=== PATIENT | female | born 1965 | race African-American/Black ===

== ENCOUNTER 2019-08-13 23:25 | Inpatient (IN) | payer BC ==
[2019-08-13] MEDS ORDERED: Magnesium 2 GM/50 ML BAG (IN WATER) ONE (23:53)
--- NOTE | 2019-08-14 00:03 | CT ---
CT Brain WO Con: 08/13/2019 12:00 AM CLINICAL HISTORY: Fall while on blood thinners. IMAGING TECHNIQUE: Multiple CT images were obtained of the brain without IV contrast. COMPARISON: None. FINDINGS: Brain: No acute infarct or hemorrhage is evident. No midline shift. Ventricles: Normal. No hydrocephalus.. Skull: Intact.. Visualized Paranasal sinuses: Clear.. Mastoid air cells:Clear. Extracranial soft tissues:Normal. IMPRESSION: No acute intracranial abnormality.
[2019-08-14 00:31] LABS: #Basophils 0.1 thou/uL (0.0-0.2); #Eosinphils 0.8 thou/uL (0.0-0.7); #Lymphocytes 2.1 thou/uL (1.20-3.40); #Monocytes 0.9 thou/uL (0.11-0.59); #Neutrophils 13.5 thou/uL (1.40-6.50); %Basophils 0.4 % (0.0-1.0); %Eosinophils 4.8 % (0.0-10.0); %Monocytes 5.2 % (0.0-10.0); %Neutrophils 77.6 % (42.0-75.0); Hemoglobin 7.5 g/dL (12.0-16.0); Mean Corpuscular HGB CONC 33.9 g/dL (32.0-36.0); Mean Corpuscular Hemoglobin 33.8 pg (27.0-31.0); Mean Corpuscular Volume 99.7 fL (78.0-98.0); Mean Platelet Volume 6.3 fL (7.4-10.4); Platelet Count 381 thou/uL (130-400); RBC Distribution Width 15.1 % (11.5-14.5); Red Blood Cell (RBC) Count 2.22 mill/uL (4.20-5.40); White Blood Cell (WBC) Count 17.4 thou/uL (4.8-10.8)
[2019-08-14 00:44] LABS: ALT (SGPT) 12 U/L (8-55); AST (SGOT) 32 U/L (5-34); Albumin 1.3 g/dL (3.5-5.0); Alkaline Phosphatase 374 U/L (40-110); Anion Gap 10 mmol/L (10-20); BUN (Urea Nitrogen) Less than 4 mg/dL (9.8-20.1); Bilirubin, Total 0.3 mg/dL (0.2-1.2); Calc. Creatinine Clearance 0 mL/min (70-130); Carbon Dioxide 27 mmol/L (22-29); Chloride 101 mmol/L (98-107); Estimated GFR-MDRD Greater than 90; Globulin 1.8 g/dL (2.4-3.5); Glucose 125 mg/dL (70-105); Protein, Total 3.1 g/dL (6.0-8.3); Sodium 136 mmol/L (136-145)
[2019-08-14 00:50] LABS: Calcium 5.9 mg/dL (7.8-10.44); Potassium 2.1 mmol/L (3.5-5.1)
[2019-08-14] MEDS ORDERED: Cefepime 2 GM VIAL ONE (01:34)
[2019-08-14] MEDS ORDERED: Calcium Gluc 4.6 MEQ/10 ML (100 MG/ML) ONE ×2 (01:34→01:38)
[2019-08-14 02:01] LABS: INR-International Normal Ratio 2.7; Prothrombin Time 28.1 SEC (12.0-14.7)
[2019-08-14] MEDS ORDERED: Vancomycin HCl 1.25 GM in Sodium Chloride 0.9% 250 ML 250 ML IVPB SCH (02:15)
[2019-08-14] MEDS ORDERED: Potassium Chloride 40 MEQ in Sodium Chloride 0.9% 500 ML IVPB SCH (02:30)
[2019-08-14] MEDS ORDERED: Ondansetron PF 4 MG/2 ML Vial IVP PRN (06:25)
[2019-08-14] MEDS ORDERED: Ondansetron ODT 4 MG TAB SL PRN (06:25)
[2019-08-14] MEDS ORDERED: Loperamide HCl 2 MG CAP PO PRN (06:25)
[2019-08-14] MEDS ORDERED: Acetaminophen 500 MG TAB PO PRN (06:25)
[2019-08-14 06:26] LABS: Lactic Acid 7.1 mmol/L (0.5-2.2)
[2019-08-14] MEDS ORDERED: Potassium Chloride 20 MEQ TAB PO SCH (06:30)
--- NOTE | 2019-08-14 08:30 | HP ---
PRIMARY CARE PROVIDER: Ervin Kwok MD CHIEF COMPLAINT: Falling on the floor. HISTORY OF PRESENT ILLNESS: This is a 53-year-old female, who presented to [facility] Emergency Department after apparently sliding off her couch onto the floor. The patient was noted with unsteady gait and confusion after her fall. The patient's became concerned and notified EMS personnel. The patient states that she had fallen asleep when she slid off the couch. However, the patient's reported that the patient's eyes rolled back in her head and she stopped responding. She apparently stopped breathing for short time, however, after EMS personnel arrived, the patient appeared with somewhat labored breathing and hypotensive with systolic blood pressure in the 80s to 90s. The patient admits to feeling fatigued and noticed swelling of her lower extremities over the last several days. The patient denied any recent change to her chronic medication regimen, but does state that she has had difficulty with recurrent diarrhea with multiple loose stools each day. The patient denied any blood in her stool, travel history, or family members with similar symptoms. The patient states she was recently evaluated at [facility] and admitted undergoing endoscopy with biopsies taken, however, is unclear of the results or the findings. The patient also admits to increased cough over the last 3 to 4 days, but no documented fever. The patient states she continues to smoke up to half a pack of cigarettes daily. The patient admits to overall decreased appetite due to the persistent diarrhea. In the emergency room, the patient underwent general evaluation including CT of the brain and chest imaging with chest x-ray showing evidence of questionable bleb on the right lower lobe as well as left lower lobe infiltrate. The patient received multiple medications to include cefepime, vancomycin, potassium chloride, lactated Ringer's x2 L in addition to calcium gluconate and magnesium sulfate. The patient was noted with persistent hypotension, receiving boluses of IV fluids with some improvement in overall systolic blood pressures. The patient was also given 1 unit of packed red blood cells after hemoglobin was noted at 7.5. The patient recommended for admission to the Hospitalist Service. PAST MEDICAL HISTORY: 1. Irritable bowel syndrome. 2. Chronic obstructive pulmonary disease. 3. Tobacco abuse. 4. Chronic Pancreatitis/Pseudocyst 5. Splenic vein thrombosis 6. Chronic anticoagulation with Coumadin 7. IBS/Chronic diarrhea and malabsorption PAST SURGICAL HISTORY: Status post hysterectomy, colonoscopy/EGD CURRENT MEDICATIONS: Complete list will be provided by the family as the patient is unclear of her entire list of medications. ALLERGIES: ERYTHROMYCIN. FAMILY HISTORY: Positive for hypertension. SOCIAL HISTORY: The patient is . Resides in the [facility]. Smokes up to half a pack of cigarettes daily. Occasional alcohol use. No illicit drug use. REVIEW OF SYSTEMS: CONSTITUTIONAL: Negative for weight loss or gain, ability to conduct usual activities. SKIN: Negative for rash, itching. EYES: Negative for double vision, pain. ENT/MOUTH: Negative for nose bleeding, neck stiffness, pain, tenderness. CARDIOVASCULAR: Negative for palpitations, dyspnea on exertion, orthopnea. RESPIRATORY: Negative for shortness of breath, wheezing, cough, hemoptysis, fever or night sweats. GASTROINTESTINAL: Negative for poor appetite, abdominal pain, heartburn, nausea , vomiting, constipation, or diarrhea. GENITOURINARY: Negative for urgency, frequency, dysuria, nocturia. MUSCULOSKELETAL: Negative for pain, swelling. NEUROLOGIC/PSYCHIATRIC: Negative for anxiety, depression. ALLERGY/IMMUNOLOGIC: Negative for skin rash, bleeding tendency. Otherwise negative except as stated per HPI. PHYSICAL EXAMINATION: VITAL SIGNS: On admission, blood pressure 82/59, pulse 88, respiratory rate 21, temperature 97.9 degrees Fahrenheit, and O2 saturation 98% on room air. GENERAL APPEARANCE: This is a 53-year-old female, lethargic, answers questions, in mild distress. HEENT: Pupils are equal, round, and reactive to light and accommodation. Extraocular muscles are intact. No scleral icterus. No conjunctival injection. Nares are patent. OP is clear. Oral mucosa dry appearing. NECK: Supple. No cervical adenopathy. No thyromegaly. No carotid bruits. No JVD appreciated. Cervical spine with full active and passive range of motion. No meningeal signs noted. CHEST: Diminished breath sounds in the bases with prolonged expiratory phase. CARDIOVASCULAR: S1 and S2 without noted murmur, rub, or gallop. ABDOMEN: Rounded, soft, nontender, and nondistended. Bowel sounds are positive in all 4 quadrants. There is no hepatosplenomegaly. No abdominal bruits. No rebound or guarding appreciated. EXTREMITIES: Warm and dry with fair turgor. Pitting edema to the thighs bilaterally. Bullous formation of multiple areas on bilateral lower extremities. Pulses are palpable distally at the dorsalis pedis, posterior tibial, and popliteal arteries bilaterally. Capillary refill less than 2 seconds. NEUROLOGIC: Cranial nerves II through XII are grossly intact. No focal or lateralizing signs appreciated. PERTINENT LABORATORY AND X-RAY FINDINGS: Sodium 136, potassium 2.1, chloride 101, CO2 of 27, BUN less than 4, creatinine 0.45, glucose 125, lactic acid level 5.4, calcium 5.9, AST 32, ALT of 12, alkaline phosphatase 374 with troponin I 0.012, and albumin 1.3. CBC showed a white blood cell count of 17.4, hemoglobin 7.5, hematocrit 22, MCV 99.7, and platelet count 381 with 78% neutrophils. PT 28.1, INR 2.7. CT of the brain without contrast dated 08/13/2019, showed no acute intracranial process. Portable chest x-ray dated 08/13/2019, by my review shows chronic changes in bilateral lung pederson. Bleb noted in the right middle and lower lobe. Questionable early infiltrate in the left lower lobe. EKG dated 2018, by my interpretation shows sinus mechanism with heart rates in the 80s. Attenuated R-waves noted in the precordial leads. Normal axis. T-wave inversion noted in leads V2 through V4. ASSESSMENT AND PLAN: 1. Severe sepsis with septic shock. Questionable etiology with potential of pulmonary source. We will continue aggressive sepsis protocol. The patient received IV fluid boluses in the emergency room. We will continue cefepime and Levaquin IV, pending blood and urine cultures. Transfer to the Intermediate Care Unit for further monitoring. 2. Hypokalemia. Severe hypokalemia on metabolic screening. Continue potassium chloride supplementation and monitor serial potassium. 3. Lactic acidosis secondarily to severe sepsis with septic shock. We will continue IV fluids and IV antibiotics as outlined in #1. 4. Hypocalcemia. Status post calcium gluconate intravenously. Repeat calcium level in the a.m. 5. Macrocytic anemia. Appears chronic with questionable acute/subacute component. Status post 1 unit of packed red blood cells in the emergency room. Check stool studies in addition to stool guaiac. Consult GI Service for further evaluation. 6. Coagulopathy. The patient apparently on long-term anticoagulation. However, this will need to be confirmed with the current and accurate medication regimen. 7. Prophylaxis. SCDs while in bed. Pepcid 20 mg p.o. b.i.d. PT evaluation for functional assessment. 8. Code status is full. Surrogate medical decision maker is the patient's spouse. Job ID: [id number] MTDD
--- NOTE | 2019-08-14 08:32 | RAD ---
PORTABLE CHEST: Date: 08/13/19 HISTORY: Syncope. COMPARISON: 12/22/16. FINDINGS: There is a cavitary lesion with cavitation measuring up to 4.0 cm in the right lung base. There is a confluent opacity in the left lung base consistent with mass or infiltrate. The upper lungs appear clear. The right hilum is prominent, but is stable. Heart and mediastinum unre markable. IMPRESSION: 1. Cavitary lesion in the right lung base. 2. Confluent opacity in the left base consistent with mass or focal consolidation. Chest CT may be o f benefit to further characterize these findings. POS: OFF
[2019-08-14] MEDS: Famotidine 20 MG TAB PO SCH ×2 (09:00→20:06)
[2019-08-14] MEDS ORDERED: Cefepime 2 GM VIAL IVPB SCH (09:00)
[2019-08-14] MEDS: Sodium Chloride 0.9% 1,000 ML IV SCH ×4 (09:04→23:12)
[2019-08-14 09:19] LABS: Amphetamine Not Detected (NotDetected); Barbiturates Screen Detected (NotDetected); Benzodiazepine Screen Not Detected (NotDetected); Cocaine Metabolite Screen Not Detected (NotDetected); Medtox Control Line Valid? VALID (VALID); Medtox Reader # READER 4; Methadone Not Detected (NotDetected); Methamphetamine Not Detected (NotDetected); Opiate Screen Not Detected (NotDetected); Oxycodone Screen Not Detected (NotDetected); Phencyclidine (PCP) Not Detected (NotDetected); THC/Cannabinoid Screen Not Detected (NotDetected); Tricyclic Screen Not Detected (NotDetected)
[2019-08-14] MEDS ORDERED: Calcium Chloride 13.6 MEQ in Sodium Chloride 0.9% 100 ML IVPB SCH (09:30)
--- NOTE | 2019-08-14 09:51 | CON ---
DATE OF CONSULTATION: 08/14/2019 REASON FOR CONSULTATION: IMCU management. HISTORY OF PRESENT ILLNESS: The patient is a 53-year-old female, who presented to the emergency room after sliding off her couch. She appears very weak. She has numerous complaints. She has chronic diarrhea. She has pain throughout her body. She has swelling throughout her body. She usually receives hospital care at [facility], but her primary care physician is Dr. Ervin Kwok. It sounds like she was being referred to Gastroenterology for further workup, but has not seen them yet. In the emergency room, she was noted to have a low blood pressure. Her potassium and calcium level were extremely low. I do not see the magnesium level was done. Her lactic acid level is quite high. Also notable her INR is 2.7, but she is currently on Coumadin. She is also profoundly anemic. PAST MEDICAL HISTORY: 1. Irritable bowel syndrome/chronic diarrhea. 2. Chronic obstructive pulmonary disease. 3. Tobacco abuse. 4. Previous pneumonia. PAST SURGICAL HISTORY: She had a hysterectomy. MEDICATIONS: Prior to admission, she is on Coumadin. Other medications list is pending. SOCIAL HISTORY: She smokes about 5 cigarettes per day and smokes about half pack per day most of her adult life. Does not use illicit drugs. Remote use of alcohol in the past. REVIEW OF SYSTEMS: Remarkable for weight loss, swelling, thrush, and poor appetite. PHYSICAL EXAMINATION: VITAL SIGNS: Pulse 92, blood pressure 107/67, O2 saturation 98%, respiratory rate 22, and temperature is 98.9. She is 5 feet and 5 inches, weighs 110 pounds. GENERAL: Appears in no acute distress. HEENT: Pupils are reactive. Sclerae are anicteric. Oropharynx dry. NECK: No adenopathy, JVD, or bruits. LUNGS: Diminished effort, but generally clear throughout. CARDIOVASCULAR: S1 and S2. Regular. ABDOMEN: Soft and nontender. EXTREMITIES: Lower extremity edema present from the feet up to her hips, probably 1 to 2+. LABORATORY DATA: Sodium 136, potassium 2.1, chloride 101, CO2 of 27, BUN 4, creatinine 0.4, glucose 125, lactate 7.1, calcium 5.9, and albumin is 1.3. Cortisol level 14. INR 2.7. White blood cell count 17.4, hematocrit 22.1, and platelet count 381. Urine drug screen was positive for barbiturates. IMAGING STUDIES: Chest x-ray shows a cavitary type lesion in the right lower lobe. There is also a density in the left lower lobe. ASSESSMENT: 1. The patient is presenting with profound intravascular hypovolemia with severe electrolyte disturbances. This all may be secondary to chronic diarrhea. She is also severely hypoalbuminemic indicating that she has either cirrhosis and/or nephrotic syndrome. 2. Cavitary lesion and nodular lesion on her chest x-ray. 3. Anemia. 4. History of splenic thrombosis. PLAN: 1. The patient is ultimately going to need a CT of her chest. I will wait and see if GI wants imaging of her abdomen, so we will combine these 2 procedures. 2. Agree with IV antibiotics. 3. Replace electrolytes and check levels. 4. We will need to check magnesium. 5. Replace calcium. 6. Agree with empiric antibiotics. 7. Consider transfusion. 8. Workup for possible nephrotic syndrome. Job ID: [id number]
[2019-08-14 10:31] LABS: Bilirubin Negative (Negative); Blood, Urine Negative (Negative); Glucose, Urine (Dipstick) Negative (Negative); Leukocyte Negative (Negative); Nitrite Negative (Negative); Protein, Urine (Dipstick) Negative (Neg-Trace); Urobilinogen 0.2 mg/dL (Less than 2)
[2019-08-14 10:34] LABS: Bacteria/HPF 1+ HPF (None Seen); RBC/HPF 0-3 HPF (0-3); Squamous Epithelial 0-3 HPF (0-3); WBC/HPF 0-3 HPF (0-3)
[2019-08-14 10:35] LABS: Clarity Clear (Clear)
[2019-08-14 12:35] LABS: Anion Gap 14 mmol/L (10-20); BUN (Urea Nitrogen) Less than 4 mg/dL (9.8-20.1); Calc. Creatinine Clearance 99 mL/min (70-130); Calcium 6.7 mg/dL (7.8-10.44); Carbon Dioxide 25 mmol/L (22-29); Chloride 103 mmol/L (98-107); Estimated GFR-MDRD Greater than 90; Glucose 129 mg/dL (70-105); Magnesium 1.4 mg/dL (1.6-2.6); Potassium 3.3 mmol/L (3.5-5.1); Sodium 139 mmol/L (136-145)
--- NOTE | 2019-08-14 13:22 | CON ---
DATE OF CONSULTATION: 08/14/2019 REQUESTING PHYSICIAN: Dr. Simmons. REASON FOR CONSULTATION: Chronic diarrhea and anemia. HISTORY OF PRESENT ILLNESS: Nicole Rolle is a 53-year-old woman with a history of COPD and tobacco abuse. She has a remote history of splenic thrombosis, for which she has been on Coumadin for at least the past 6 months. In the past, she saw my partner, Dr. Huber Anderson and had negative EGD and colonoscopy back in 2014. More recently, over the past greater than 6 months, she has had a constellation of symptoms including progressive weakness, swelling in the lower extremities, weight loss of 50 to 60 pounds, loss of appetite, and chronic diarrhea with at least 4 to 5 nonbloody bowel movements per day. There is no abdominal pain associated with this. She was hospitalized recently at [facility] earlier this month for over a week and says she had multiple studies done including EGD and colonoscopy with biopsies. She states that she was told she had an ulcer in her small intestine and that biopsies were still pending. She was going to follow up with her GI doctor, Dr. Adair next week. However, she was admitted here yesterday after having a fall at home essentially she slid off the couch, she was found to be hypotensive. She has elevated lactic acid 7.1 and other lab abnormalities including severe hypoalbuminemia, leukocytosis with WBC 17.4. A head CT was negative, but a chest x-ray showed a left lung base opacity and right lower lung cavitary lesion measuring 4 cm. She has been seen by Pulmonology and a CT of the chest has been ordered. Currently, the patient is essentially asymptomatic. Again, she denies any melena or hematochezia. FOBT was negative. The patient expresses a desire to minimize any further workup is possible here, and continue with workup already in process at [facility]. REVIEW OF SYSTEMS: Full review of systems including constitutional, head, eyes, ears, nose, throat, GI, , cardiovascular, respiratory, musculoskeletal, neurologic systems is negative except as noted in the HPI. PAST MEDICAL HISTORY: COPD, tobacco abuse, IBS, hysterectomy, and splenic thrombosis on Coumadin. ALLERGIES: ERYTHROMYCIN BASE. OUTPATIENT MEDICATIONS: 1. Spironolactone 25 mg daily. 2. Hydrocodone p.r.n. 3. Tizanidine 2 mg at bedtime. 4. Fluconazole 200 mg p.o. daily. 5. Potassium chloride 20 mEq daily. 6. Nystatin oral suspension. SOCIAL HISTORY: The patient does smoke. No alcohol or drug abuse. FAMILY HISTORY: Negative for gastrointestinal illness per the patient's recollection. PHYSICAL EXAMINATION: VITAL SIGNS: Temperature 98.6, pulse 106, blood pressure 107/71, and 100% oxygen saturation on room air. GENERAL: A 53-year-old woman, appearing chronically ill, but nontoxic, lying in bed comfortably, in no distress. SKIN: No jaundice. No rashes were palpable. HEENT: Eyes; no scleral icterus. Extraocular movements intact. ENT; mucous membranes moist. No oral lesions. LYMPH: No submandibular or supraclavicular lymphadenopathy. THYROID: Nontender to palpation. HEART: Regular, tachycardia. LUNGS: Bibasilar crackles. No wheezing. No respiratory distress. ABDOMEN: Nondistended. Bowel sounds present. Soft, nontender to palpation. EXTREMITIES: Trace pretibial edema bilaterally. LABORATORY STUDIES: WBC 17.4, hemoglobin 7.5, platelets 381. Sodium 136, potassium 2.1, BUN less than 4, and creatinine 0.43. INR 2.7. Lactic acid 7.1. Troponin negative. Alkaline phosphatase 374, AST 32, ALT 12, albumin 1.3, and total bilirubin 0.3. Urinalysis negative. Urine tox screen is positive for barbiturates. Stool studies show negative FOBT, negative fecal leukocytes, negative Campylobacter antigen. IMAGING STUDIES: Head CT shows no acute abnormalities. Chest x-ray shows left lung base opacity and the right lung base cavitary lesion measuring 4 cm. ASSESSMENT AND PLAN: 1. Chronic diarrhea. 2. Anemia, with no overt evidence of gastrointestinal bleeding. 3. Weight loss. 4. Malnutrition. The patient reports having undergone upper and lower endoscopic workup earlier this month with Dr. Adair at [facility], that she had some ulceration in the small bowel, and the biopsies were obtained. Consider celiac disease versus small bowel Crohn disease. I do not think there is any need to repeat any endoscopic investigation at this point. The patient is hoping to minimize any workup here if possible and follow up with Dr. Adair as planned next week. So, we will not plan on any endoscopy. 5. Lung lesions. Pulmonary has been consulted. From my understanding, chest CT is planned for further investigation of this right-sided cavitary lesion and left-sided density. We will attempt to get records from her recent [facility] hospitalization, particularly with regard to her endoscopic workup. But from a GI perspective, we will likely not plan to repeat that here. Job ID: [id number]
[2019-08-14] MEDS: Cefepime 2 GM in Sodium Chloride 0.9% 100 ML IVPB SCH (13:24)
[2019-08-14] MEDS: Potassium Chloride 20 MEQ TAB PO SCH (16:43)
[2019-08-14] MEDS: Loperamide HCl 2 MG CAP PO PRN (20:06)
[2019-08-14] MEDS: HYDROcodone/Acetaminophen 5/325 mg Tablet PO PRN (20:06)
[2019-08-15] MEDS: Cefepime 2 GM in Sodium Chloride 0.9% 100 ML IVPB SCH ×2 (01:45→15:02)
[2019-08-15] MEDS: Benzonatate 100 MG CAP PO PRN ×2 (02:14→08:24)
[2019-08-15] MEDS: HYDROcodone/Acetaminophen 5/325 mg Tablet PO PRN ×4 (02:15→20:07)
[2019-08-15 06:22] VITALS: BMI 21.7
[2019-08-15 06:47] LABS: INR-International Normal Ratio 2.3; Prothrombin Time 24.7 SEC (12.0-14.7)
[2019-08-15 06:52] LABS: Band 18 % (5-11); Eosinophils 1 % (0-10); Lymphocytes 5 % (21-51); MDiff Complete? YES; Mean Corpuscular HGB CONC 32.9 g/dL (32.0-36.0); Mean Platelet Volume 6.5 fL (7.4-10.4); Monocytes 3 % (0-10); Neutrophil 73 % (42-75); Platelet Count 380 thou/uL (130-400); RBC Distribution Width 15.7 % (11.5-14.5); Red Blood Cell (RBC) Count 3.35 mill/uL (4.20-5.40); White Blood Cell (WBC) Count 19.9 thou/uL (4.8-10.8)
[2019-08-15 06:59] LABS: Phosphorus 1.9 mg/dL (2.3-4.7)
[2019-08-15 07:00] LABS: ALT (SGPT) 14 U/L (8-55); AST (SGOT) 24 U/L (5-34); Albumin 1.6 g/dL (3.5-5.0); Alkaline Phosphatase 515 U/L (40-110); Anion Gap 13 mmol/L (10-20); BUN (Urea Nitrogen) Less than 4 mg/dL (9.8-20.1); Bilirubin, Total 0.5 mg/dL (0.2-1.2); Calc. Creatinine Clearance 128 mL/min (70-130); Calcium 6.7 mg/dL (7.8-10.44); Carbon Dioxide 27 mmol/L (22-29); Chloride 102 mmol/L (98-107); Estimated GFR-MDRD Greater than 90; Globulin 2.6 g/dL (2.4-3.5); Glucose 91 mg/dL (70-105); Magnesium 1.1 mg/dL (1.6-2.6); Potassium 2.7 mmol/L (3.5-5.1); Protein, Total 4.2 g/dL (6.0-8.3); Sodium 139 mmol/L (136-145)
[2019-08-15] MEDS: Potassium Chloride 20 MEQ TAB PO SCH ×2 (07:21→15:07)
[2019-08-15] MEDS: Famotidine 20 MG TAB PO SCH ×2 (07:42→20:06)
[2019-08-15] MEDS: Loperamide HCl 2 MG CAP PO PRN (07:45)
[2019-08-15] MEDS ORDERED: Potassium Chloride 40 MEQ in Sodium Chloride 0.9% 250 ML 250 ML IVPB SCH (08:00)
[2019-08-15] MEDS ORDERED: SODIUM CHLORIDE 0.9% IVPB SCH (08:00)
[2019-08-15] MEDS ORDERED: MAGNESIUM IVPB SCH (08:00)
--- NOTE | 2019-08-15 08:11 | PRG ---
DATE OF SERVICE: 08/15/2019 SUBJECTIVE: The patient has numerous somatic complaints, but overall seems to be doing reasonably well. OBJECTIVE: VITAL SIGNS: Her temperature is 98.4, pulse 94, blood pressure 147/97, O2 saturation 99%. Intake for 24 hours 2740, output 640. HEENT: Unremarkable. NECK: No adenopathy or JVD. CHEST: Clear to auscultation without wheezing, rhonchi. CARDIAC: S1, S2. Regular. ABDOMEN: Soft, nontender to palpation. EXTREMITIES: No clubbing, cyanosis, or edema. LABORATORY DATA: White count is 19.9, hematocrit 33.5, and platelet count 380. INR is 2.3. Sodium 139, potassium 2.7, chloride 102, CO2 of 27, BUN 4, creatinine 0.4, glucose 91, phosphorus 1.9, magnesium level 1.1. ASSESSMENT: 1. Severe electrolyte depletion either from malnutrition or chronic diarrhea. 2. Cavitary lung lesion right lower lobe as long as a more solid lesion in the left lower lobe. PLAN: 1. Replace electrolytes. 2. Continue antibiotics. 3. Move to the medical floor as she no longer requires ICU care. 4. Complete CT of the chest. Job ID: [id number]
[2019-08-15] MEDS: Diabetic Tussin 200 MG/10 ML UDCUP PO PRN ×3 (08:24→20:07)
--- NOTE | 2019-08-15 09:37 | CT ---
CT CHEST WITH IV CONTRAST: INDICATION: Followup cavitary lung lesion. COMPARISON: Comparison is made to chest film of 08/13/2019 which revealed a cavitary lesion in the right lung bas e and focal opacification in the left lung base. FINDINGS: There are moderate-sized bilateral pleural effusions which were not well appreciated on the plain radha m. These produce bibasilar compressive atelectasis. There is a 4.5 cm cavitary mass in the right lower lobe corresponding to the lesion seen on plain radha m. There is an air fluid level within this cavitary lesion. There is a 2nd cavitary mass in the right mid lung medially in a paravertebral location which measure s approximately 2.3 cm total dimension with a small cavitary component measuring approximately 1.0 cm diameter. In the right upper lobe, there are focal areas of ground-glass opacities consistent with focal areas of alveolar infiltrate. Small blebs are seen in the right upper lobe posteriorly along the pleural s urface. Review of the left lung shows small blebs seen in the left upper lobe posteriorly along the fluid tierra face of the effusion . There are also ground-glass opacities in the left upper lobe similar to the ri ght consistent with areas of focal infiltrate. There is a cavitary lesion in the left mid lung in the region of the lingula measuring 3.0 cm total d imension with a small central cavitation measuring approximately 1.2 cm. There is compressive atelec tasis and/or infiltrate in the left lung base posteriorly adjacent to the left pleural fluid. Mediastinum is unremarkable with no adenopathy. Thoracic aorta is opacified and appears unremarkable . The pulmonary arteries are opacified and there is no evidence of proximal pulmonary embolus. Images through the upper abdomen reveal low attenuation of the liver suggesting diffuse fatty infiltr ation. IMPRESSION: 1. Moderate-sized bilateral pleural effusions with bibasilar compressive atelectasis. 2. There are multiple cavitary lesions seen in both lungs as described above. In addition, there ar e focal nodular areas of ground-glass opacity in both upper lobes as described above. Tuberculosis a nd other granulomatous infections should be excluded. POS: [facility]
[2019-08-15] MEDS: Sodium Chloride 0.9% 1,000 ML IV SCH ×2 (11:56→20:05)
--- NOTE | 2019-08-15 17:25 | PRG ---
DATE OF SERVICE: 08/15/2019 SUBJECTIVE: Ms. Rolle is resting in her bed. She has been moved out of the ICU without complaints. She wonders about results of her test. I have talked with her. She states that she was drinking heavily up until about a couple of months ago when she had pancreatitis at [facility]. Since then, she states she has not had anything to drink. She has had electrolytes replaced today. She continues to have severe profound hyponatremia, phosphatemia, calcemia, and magnesemia. I talked with the nurses. No records come from [facility] yet. Apparently, now she is being ruled out for TB. MEDICATIONS: 1. Normal saline 100 an hour. 2. K-Dur 40 b.i.d. 3. Levofloxacin. 4. Famotidine. 5. Cefepime. 6. Pepcid b.i.d. PHYSICAL EXAMINATION: GENERAL: She is resting comfortably on bed. VITAL SIGNS: Temperature 97, pulse 90, blood pressure 161/97. HEENT: She had puffy cheeks. NECK: Supple without nodes. LUNGS: Clear. ABDOMEN: Nontender. LABORATORY DATA: White count 19,900, MCV 100, and platelet count 380. INR is 2.3. Sodium 139, potassium 2.6, BUN is 4, creatinine is 0.47, and calcium 6.7. Lactic acid was 8 yesterday and when checked today. Phosphorus 1.9. Magnesium is 1.1. Bilirubin is 0.5, total protein 4.2, and albumin 1.6. TSH of 4. ASSESSMENT: 1. Diarrhea, etiology is unclear. Fecal cultures negative. Inflammatory markers in stool negative. Red blood cells in stool negative. She has had apparently recent diagnosis of pancreatitis at [facility], has a splenic vein thrombosis, maybe she has some pancreatic insufficiency. She denies drinking alcohol, states she stopped 2 months ago. 2. Multiple electrolyte abnormalities, could be related to a secretory diarrhea, could be related to malabsorption from chronic pancreatitis, could be related to alcohol abuse, but no levels were checked when she came in. 3. Leukocytosis. 4. Possible tuberculosis on x-rays. RECOMMENDATIONS: 1. I would consider getting an HIV test. Await for records from [facility]. We would check electrolytes including magnesium and phosphorus daily and replace with IV and not oral. 2. We would add some potassium to her IV fluids. 3. Consider checking for immunosuppression. Job ID: [id number]
--- NOTE | 2019-08-15 21:51 | PDOC.HOSPP ---
- Subjective Subjective: Still having problems with the diarrhea. Has been losing a fair amount of weight. Denies abdominal pain. - Objective Vital Signs & Weight: Vital Signs (12 hours) Temp Pulse Resp BP Pulse Ox 08/15/19 19:20 97.7 F 77 18 148/93 H 98 08/15/19 18:25 98 16 97 08/15/19 16:31 97.4 F L 70 16 161/97 H 97 08/15/19 15:02 100 20 08/15/19 12:05 98.3 F 85 16 128/83 97 08/15/19 11:10 107 H 20 96 Weight Admit Weight 110 lb Weight 130 lb 8.218 oz Most Recent Monitor Data Heart Rate from ECG 84 NIBP 147/94 NIBP BP-Mean 111 Respiration from ECG 24 SpO2 96 I&O: 08/14/19 08/15/19 08/16/19 06:59 06:59 06:59 Intake Total 2740 0 Output Total 640 80 Balance 2100 -80 Result Diagrams: 08/15/19 06:16 08/15/19 06:16 Hospitalist ROS - Medication Medications: Active Medications Generic Name Dose Route Start Last Admin Trade Name Freq PRN Reason Stop Dose Admin Acetaminophen 1,000 mg 08/14/19 06:25 08/14/19 20:10 Tylenol PO 1,000 mg Q6H PRN Administration Mild Pain (1-3) Hydrocodone Bitart/Acetaminophen 1 tab 08/14/19 06:25 08/15/19 20:07 [place] 5/325 PO 1 tab Q4H PRN Administration Moderate Pain (4-6) Albuterol/Ipratropium 3 ml 08/14/19 06:30 08/15/19 18:25 Duoneb NEB 3 ml [id number] ELIDA Administration Benzonatate 100 mg 08/14/19 06:25 08/15/19 08:24 Tessalon PO 100 mg Q6H PRN Administration Cough Famotidine 20 mg 08/14/19 09:00 08/15/19 20:06 Pepcid PO 20 mg BID ELIDA Administration Guaifenesin 200 mg 08/14/19 06:25 08/15/19 20:07 Robitussin Sf PO 200 mg Q4H PRN Administration Cough Levofloxacin 750 mg/ Device 150 mls @ 100 mls/hr 08/14/19 08:00 08/15/19 07: 40 IVPB 150 mls 0800 ELIDA Administration Sodium Chloride 1,000 mls @ 100 mls/hr 08/14/19 06:25 08/15/19 20:05 Normal Saline 0.9% IV 1,000 mls .Q10H ELIDA Administration Cefepime HCl 2 gm/ Sodium 100 mls @ 200 mls/hr 08/14/19 14:00 08/15/19 15:02 Chloride IVPB 100 mls 0200,1400 ELIDA Administration Loperamide HCl 2 mg 08/14/19 06:25 08/15/19 07:45 Imodium PO 2 mg PRN PRN Administration Diarrhea/Loose Stools Ondansetron HCl 4 mg 08/14/19 06:25 08/14/19 16:43 Zofran IVP 4 mg Q6H PRN Administration Nausea/Vomiting - Exam General Appearance: NAD, awake alert Eye - other findings: Some facial edema. Neck: supple, symmetric, no JVD, no thyromegaly, no lymphadenopathy, no carotid bruit Heart: RRR, no murmur, no gallops, no rubs, normal peripheral pulses Respiratory: CTAB, no wheezes, no rales, no ronchi, normal chest expansion, no tachypnea, normal percussion Gastrointestinal: soft, non-tender, non-distended, normal bowel sounds, no palpable masses, no hepatomegaly, no splenomegaly Extremities: no cyanosis, 2+ LE edema Extremities - other findings: Crenated skin over the LE's. Musculoskeletal: generalized weakness Psychiatric: normal affect Hosp A/P (1) Diarrhea Code(s): R19.7 - DIARRHEA, UNSPECIFIED Status: Acute (2) Malnutrition Code(s): E46 - UNSPECIFIED PROTEIN-CALORIE MALNUTRITION Status: Acute (3) Hypokalemia Code(s): E87.6 - HYPOKALEMIA Status: Acute (4) Hypophosphatemia Code(s): E83.39 - OTHER DISORDERS OF PHOSPHORUS METABOLISM Status: Acute (5) Anasarca Code(s): R60.1 - GENERALIZED EDEMA Status: Acute (6) Cavitary lesion of lung Code(s): J98.4 - OTHER DISORDERS OF LUNG Status: Acute (7) Sepsis Code(s): A41.9 - SEPSIS, UNSPECIFIED ORGANISM Status: Acute (8) Lactic acid acidosis Code(s): E87.2 - ACIDOSIS Status: Acute (9) Macrocytic anemia Code(s): D53.9 - NUTRITIONAL ANEMIA, UNSPECIFIED Status: Acute - Plan Broad array of nutritional deficiencies and electrolyte deficiencies. Chronic diarrhea. Cause is not clear. Had endoscopy [facility] Requesting results/records again. Has leukocytosis, cavitary lung lesions and fever. Concern for TB, encocarditis. Echo, AFB smears. Isolate. Continue the broad-spectrum IV abx. Aggressively monitor, replace lytes. May need to consider IV nutrition if the GI situation is not identified and resolved soon.
[2019-08-16] MEDS: HYDROcodone/Acetaminophen 5/325 mg Tablet PO PRN ×5 (01:16→20:36)
[2019-08-16] MEDS: Cefepime 2 GM in Sodium Chloride 0.9% 100 ML IVPB SCH ×2 (01:16→13:17)
[2019-08-16 07:08] LABS: Anion Gap 10 mmol/L (10-20); BUN (Urea Nitrogen) Less than 4 mg/dL (9.8-20.1); Calc. Creatinine Clearance 150 mL/min (70-130); Calcium 6.2 mg/dL (7.8-10.44); Carbon Dioxide 24 mmol/L (22-29); Chloride 105 mmol/L (98-107); Estimated GFR-MDRD Greater than 90; Glucose 127 mg/dL (70-105); Magnesium 1.4 mg/dL (1.6-2.6); Phosphorus 3.1 mg/dL (2.3-4.7); Potassium 3.2 mmol/L (3.5-5.1); Sodium 136 mmol/L (136-145)
[2019-08-16] MEDS: Pancrelipase DR 12000 1 CAP PO SCH ×3 (07:49→17:43)
[2019-08-16] MEDS: Famotidine 20 MG TAB PO SCH ×2 (07:50→20:48)
[2019-08-16] MEDS ORDERED: Potassium Chloride 40 MEQ in Premix Bag 1 BAG IVPB SCH (08:00)
[2019-08-16] MEDS ORDERED: Potassium Chloride 40 MEQ in Sodium Chloride 0.9% 250 ML 250 ML IVPB SCH (08:30)
[2019-08-16] MEDS: Diabetic Tussin 200 MG/10 ML UDCUP PO PRN ×4 (08:36→20:48)
--- NOTE | 2019-08-16 11:27 | PRG ---
DATE OF SERVICE: 08/16/2019 SUBJECTIVE: The patient's CT scan yesterday showing multiple fluid-filled lung abscesses, primarily in the lower aspects of her lungs. She also had bilateral small effusions. I was able to review records from [facility] done a couple of weeks ago and she did not have a CT scan done and nothing on the x-ray mention cavitary lesions at that time. She did not have a JOHNATHON there, but had a transthoracic echocardiogram. She says she feels a little better today. She coughed up some sputum for AFB, but the results of that are pending. OBJECTIVE: VITAL SIGNS: Her temperature 97.4, pulse 82, respirations 18, O2 saturation 96%, and blood pressure 144/87. HEENT: Unremarkable. NECK: No adenopathy or JVD. LUNGS: Clear anteriorly. CARDIAC: S1 and S2. Regular. ABDOMEN: Soft. EXTREMITIES: No edema. LABORATORY DATA: Sodium 136, potassium 3.2, BUN 4, creatinine 0.4, and glucose 127. ASSESSMENT: Cavitary lung disease-lung abscesses versus septic emboli, less likely tuberculosis. PLAN: 1. Agree with checking HIV test. 2. Await sputum. 3. May end up needing a JOHNATHON. 4. Continue antibiotics. Job ID: [id number]
[2019-08-16] MEDS: Sodium Chloride 0.9% 1,000 ML IV SCH ×2 (11:38→20:29)
[2019-08-16 12:29] LABS: HIV (1/2) Antibody/Antigen Non-Reactive (NonReactive); HIV 1/2 INDEX 0.06 S/CO (<1.00)
[2019-08-16] MEDS ORDERED: Magnesium Sulfate 3 GM in Sodium Chloride 0.9% 100 ML IVPB SCH (15:15)
[2019-08-16] MEDS: Benzonatate 100 MG CAP PO PRN (20:48)
--- NOTE | 2019-08-16 22:54 | PDOC.HOSPP ---
- Subjective Subjective: Doing ok. Diarrhea is slightly better. Spoke with her . He was concerned about an area on her right post chest area. Had a injury there with a fall and now has some swelling. - Objective Vital Signs & Weight: Vital Signs (12 hours) Temp Pulse Resp BP Pulse Ox 08/16/19 21:54 60 16 95 08/16/19 20:00 97.8 F 91 18 134/87 97 08/16/19 18:14 61 18 98 08/16/19 16:51 97.5 F L 74 18 149/91 H 95 08/16/19 15:24 68 18 97 08/16/19 11:34 97.6 F 74 28 H 137/83 96 Weight Admit Weight 110 lb Weight 130 lb 3.2 oz Most Recent Monitor Data Heart Rate from ECG 84 NIBP 147/94 NIBP BP-Mean 111 Respiration from ECG 24 SpO2 96 I&O: 08/15/19 08/16/19 08/17/19 06:59 06:59 06:59 Intake Total 2740 1224 Output Total 640 2480 Balance 2100 -1256 Result Diagrams: 08/15/19 06:16 08/17/19 07:41 Hospitalist ROS - Medication Medications: Active Medications Generic Name Dose Route Start Last Admin Trade Name Freq PRN Reason Stop Dose Admin Acetaminophen 1,000 mg 08/14/19 06:25 08/14/19 20:10 Tylenol PO 1,000 mg Q6H PRN Administration Mild Pain (1-3) Hydrocodone Bitart/Acetaminophen 1 tab 08/14/19 06:25 08/16/19 20:36 [place] 5/325 PO 1 tab Q4H PRN Administration Moderate Pain (4-6) Albuterol/Ipratropium 3 ml 08/14/19 06:30 08/16/19 21:54 Duoneb NEB 3 ml [id number] ELIDA Administration Lipase/Protease/Amylase 3 cap 08/16/19 08:00 08/16/19 17:[address] [place] [address] [id number] PO 3 cap TID-WM ELIDA Administration Benzonatate 100 mg 08/14/19 06:25 08/16/19 20:48 Tessalon PO 100 mg Q6H PRN Administration Cough Famotidine 20 mg 08/14/19 09:00 08/16/19 20:48 Pepcid PO 20 mg BID ELIDA Administration Guaifenesin 200 mg 08/14/19 06:25 08/16/19 20:48 Robitussin Sf PO 200 mg Q4H PRN Administration Cough Levofloxacin 750 mg/ Device 150 mls @ 100 mls/hr 08/14/19 08:00 08/16/19 07: 46 IVPB 150 mls 0800 ELIDA Administration Sodium Chloride 1,000 mls @ 100 mls/hr 08/14/19 06:25 08/16/19 20:29 Normal Saline 0.9% IV 1,000 mls .Q10H ELIDA Administration Cefepime HCl 2 gm/ Sodium 100 mls @ 200 mls/hr 08/14/19 14:00 08/16/19 13:17 Chloride IVPB 100 mls 0200,1400 ELIDA Administration Loperamide HCl 2 mg 08/14/19 06:25 08/15/19 07:45 Imodium PO 2 mg PRN PRN Administration Diarrhea/Loose Stools Ondansetron HCl 4 mg 08/14/19 06:25 08/14/19 16:43 Zofran IVP 4 mg Q6H PRN Administration Nausea/Vomiting - Exam General Appearance: NAD, awake alert Neck: supple, symmetric, no JVD, no thyromegaly, no lymphadenopathy, no carotid bruit Heart: RRR, no murmur, no gallops, no rubs, normal peripheral pulses Respiratory: no wheezes, rales Gastrointestinal: soft, non-tender, non-distended, normal bowel sounds, no palpable masses, no hepatomegaly, no splenomegaly, no bruit Neurological: cranial nerve grossly intact Musculoskeletal: generalized weakness, diffuse muscle atrophy Musculoskeletal - other findings: Soft tissue swelling of right post chest. TTP. No ecchymosis. Psychiatric: normal affect, normal behavior, A&O x 3 Hosp A/P (1) Diarrhea Code(s): R19.7 - DIARRHEA, UNSPECIFIED Status: Acute (2) Malnutrition Code(s): E46 - UNSPECIFIED PROTEIN-CALORIE MALNUTRITION Status: Acute (3) Hypokalemia Code(s): E87.6 - HYPOKALEMIA Status: Acute (4) Hypophosphatemia Code(s): E83.39 - OTHER DISORDERS OF PHOSPHORUS METABOLISM Status: Acute (5) Anasarca Code(s): R60.1 - GENERALIZED EDEMA Status: Acute (6) Cavitary lesion of lung Code(s): J98.4 - OTHER DISORDERS OF LUNG Status: Acute (7) Sepsis Code(s): A41.9 - SEPSIS, UNSPECIFIED ORGANISM Status: Acute (8) Lactic acid acidosis Code(s): E87.2 - ACIDOSIS Status: Acute (9) Macrocytic anemia Code(s): D53.9 - NUTRITIONAL ANEMIA, UNSPECIFIED Status: Acute - Plan Broad array of nutritional deficiencies and electrolyte deficiencies. Continue to replace via IV. Chronic diarrhea. Cause is not clear. Had endoscopy [facility] Reviewed records. Candidal esophagitis, mild duodenitis, normal colon. Also indicate chronic pancreatitis. She was being treated with enzymes there. Has leukocytosis, cavitary lung lesions and fever. Concern for TB, encocarditis. Echo, AFB smears. Isolate. Continue the broad-spectrum IV abx. May need to consider IV nutrition if the GI situation is not identified and resolved soon. Diarrhea is slightly better and she is eating a bit. Appears to have some soft tissue swelling or hematoma to the right posterior chest area. Does not look acute. Swelling may be worse with the generalized anasarca.
[2019-08-17] MEDS: Cefepime 2 GM in Sodium Chloride 0.9% 100 ML IVPB SCH ×2 (01:35→13:02)
[2019-08-17] MEDS: HYDROcodone/Acetaminophen 5/325 mg Tablet PO PRN ×5 (01:47→20:09)
[2019-08-17] MEDS: Sodium Chloride 0.9% 1,000 ML IV SCH ×2 (05:54→15:40)
[2019-08-17 08:30] LABS: Anion Gap 12 mmol/L (10-20); BUN (Urea Nitrogen) Less than 4 mg/dL (9.8-20.1); Calc. Creatinine Clearance 146 mL/min (70-130); Calcium 6.3 mg/dL (7.8-10.44); Carbon Dioxide 22 mmol/L (22-29); Chloride 104 mmol/L (98-107); Estimated GFR-MDRD Greater than 90; Glucose 123 mg/dL (70-105); Magnesium 1.6 mg/dL (1.6-2.6); Phosphorus 2.3 mg/dL (2.3-4.7); Potassium 3.7 mmol/L (3.5-5.1); Sodium 134 mmol/L (136-145)
[2019-08-17] MEDS: Famotidine 20 MG TAB PO SCH ×2 (08:31→20:10)
[2019-08-17] MEDS: Pancrelipase DR 12000 1 CAP PO SCH ×3 (08:31→15:38)
[2019-08-17] MEDS ORDERED: Fluconazole 100 MG TAB PO SCH (09:00)
--- NOTE | 2019-08-17 09:46 | CT ---
CT Abdomen Pelvis W Con History: Chronic pancreatitis. Comparison: Chest CT August 15, 2019 Findings: Cavitary lesion in the right lower lobe with air-fluid level is similar. Enlarging bilatera l pleural effusions. Small volume pericardial fluid. Severe third spacing of fluid. Severe inflammation around the pancreatic body with poor enhancement. There is a moderate distention of the small bowel is without a definite transition point. Diffuse hepatic steatosis. There is a hypodensity in the pancreatic head incompletely evaluated on th is exam. Aortic contour is nonaneurysmal. The spleen is small. The splenic vein appears be very narrowed. No splenic artery aneurysm. No hydronephrosis. Aortoiliac contour is nonaneurysmal. No acute osseous abnormality. Impression: 1. Severe pancreatitis with the necrosis of the head and body. 2. Hypodensity of the pancreatic head incompletely evaluated. A follow-up MRCP in 2-3 months is recom mended. 3. Enlarging bilateral pleural effusions. 4. Abnormal enhancement of the peritoneum adjacent to the liver and spleen indicating peritonitis, li jyoti from inflammation from pancreatitis. 5. Severe third spacing of fluid. 6. Diffuse hepatic steatosis. 7. Unchanged cavitary lesion right lower lobe may be from atypical infection. Continued follow-up is recommended. 8. 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 9. Dilated small bowel without transition point may reflect ileus. 10. Moderate ascites.
[2019-08-17] MEDS ORDERED: PROVENTIL INHALER 6.7 G (200 INHALATIONS) INH PRN (12:21)
--- NOTE | 2019-08-17 12:46 | PRG ---
DATE OF SERVICE: 08/17/2019 SUBJECTIVE: The patient this morning on albuterol inhaler at bedside because she says she still feels short of breath. OBJECTIVE: VITAL SIGNS: Temperature is 98.3, pulse 89, respirations 18, O2 saturation 100% on room air, and blood pressure last measured 172/97. HEENT: Unremarkable. NECK: No adenopathy or JVD. LUNGS: Coarse rhonchi bilaterally. CARDIAC: S1 and S2, regular. ABDOMEN: Soft. EXTREMITIES: No edema. LABORATORY DATA: Her first AFB was negative. Sodium 134, potassium 3.7, BUN 4, creatinine 0.4, and glucose 123. ASSESSMENT: 1. Multiple cavitary lesions with air-fluid levels, probably indicative of lung abscesses. 2. Negative HIV status. 3. Pancreatitis by CT scan. PLAN: 1. ProAir metered-dose inhaler as needed. 2. Await further smears. If negative, then I would just continue to treat her with IV antibiotics. I think at some point, Dr. Manzanares is supposed to see her and maybe he would have recommendations regarding duration of therapy. Job ID: [id number]
[2019-08-17] MEDS: Diabetic Tussin 200 MG/10 ML UDCUP PO PRN (13:08)
[2019-08-17] MEDS: Benzonatate 100 MG CAP PO PRN (13:08)
--- NOTE | 2019-08-17 16:13 | PRG ---
DATE OF SERVICE: 08/17/2019 SUBJECTIVE: Ms. Rolle has had no diarrhea today. She has tolerated some mora and eggs and grits this morning. She has no ongoing abdominal pain currently. OBJECTIVE: VITAL SIGNS: Temperature is 98.3, pulse 79, blood pressure 172/97. GENERAL: She is in no acute distress. Awake and alert. HEENT: Her eyes have no scleral icterus. LUNGS: Clear to auscultation bilaterally. HEART: Regular rate and rhythm without murmur. ABDOMEN: Soft, nontender, and mildly distended. Bowel sounds are present. EXTREMITIES: 2+ pitting lower extremity edema. IMPRESSION: 1. Recent acute alcoholic pancreatitis, for which she was admitted to [facility] a month or 2 ago. She has been off alcohol since then. CT scan performed this morning shows pancreatic necrosis of the head and body. There is some evidence of inflammation around the pancreas, however, this could be more related to edema at this point. She does not have significant ongoing symptoms to suggest severe ongoing inflammation. She is tolerating oral diet. We would continue to give this to her. 2. Anasarca with ascites, pleural effusions, and protein malnutrition. Albumin was 1.6 yesterday. A hypodensity was noted in the pancreatic head, incompletely evaluated. It is unclear if this is just a fluid collection or another lesion. This can be followed up with repeat imaging in the future. 3. Multiple lung abscesses with multiple lung cavitary lesions with air-fluid levels. She is on antibiotics for that. 4. 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 5. Diarrhea. This has apparently significantly improved with increased doses of the Creon. RECOMMENDATIONS: 1. High-protein diet with pancreatic [place] [address] units 3 times a day with meals[place] [address] units per dose if necessary. For now, it appears that she is doing much better on the current higher dose. 2. If we fail to get her nutritional status improved by oral intake, then she could ultimately require IV nutrition in the future. Given her multiple lung abscesses, I would rather avoid this. Job ID: [id number]
--- NOTE | 2019-08-17 16:20 | PDOC.HOSPP ---
- Subjective Subjective: Says she is sore all over from going down for the CT scan today. Still has some chest congestion and cough. She says the diarrhea is improving and she is hungry. Eating her breakfast. - Objective Vital Signs & Weight: Vital Signs (12 hours) Temp Pulse Resp BP Pulse Ox 08/17/19 15:37 79 20 98 08/17/19 11:13 89 18 100 08/17/19 08:00 96 08/17/19 07:38 84 14 96 08/17/19 07:19 98.3 F 67 18 172/97 H 92 L Weight Admit Weight 110 lb Weight 130 lb 3.2 oz Most Recent Monitor Data Heart Rate from ECG 84 NIBP 147/94 NIBP BP-Mean 111 Respiration from ECG 24 SpO2 96 I&O: 08/16/19 08/17/19 08/18/19 06:59 06:59 05:59 Intake Total 1224 1159 Output Total 2480 900 Balance -1256 259 Result Diagrams: 08/15/19 06:16 08/17/19 07:41 Hospitalist ROS - Medication Medications: Active Medications Generic Name Dose Route Start Last Admin Trade Name Freq PRN Reason Stop Dose Admin Acetaminophen 1,000 mg 08/14/19 06:25 08/14/19 20:10 Tylenol PO 1,000 mg Q6H PRN Administration Mild Pain (1-3) Hydrocodone Bitart/Acetaminophen 1 tab 08/14/19 06:25 08/17/19 15:39 [place] 5/325 PO 1 tab Q4H PRN Administration Moderate Pain (4-6) Albuterol/Ipratropium 3 ml 08/17/19 14:30 08/17/19 15:37 Duoneb EZPAP 3 ml [id number] ELIDA Administration Lipase/Protease/Amylase 3 cap 08/16/19 08:00 08/17/19 15:[address] [id number] PO 3 cap TID-WM ELIDA Administration Benzonatate 100 mg 08/14/19 06:25 08/17/19 13:08 Tessalon PO 100 mg Q6H PRN Administration Cough Famotidine 20 mg 08/14/19 09:00 08/17/19 08:31 Pepcid PO 20 mg BID ELIDA Administration Fluconazole 100 mg 08/17/19 09:00 08/17/19 08:31 Diflucan PO 08/23/19 09:01 100 mg DAILY ELIDA Administration Guaifenesin 200 mg 08/14/19 06:25 08/17/19 13:08 Robitussin Sf PO 200 mg Q4H PRN Administration Cough Levofloxacin 750 mg/ Device 150 mls @ 100 mls/hr 08/14/19 08:00 08/17/19 08: 23 IVPB 150 mls 0800 ELIDA Administration Sodium Chloride 1,000 mls @ 100 mls/hr 08/14/19 06:25 08/17/19 15:40 Normal Saline 0.9% IV 1,000 mls .Q10H ELIDA Administration Cefepime HCl 2 gm/ Sodium 100 mls @ 200 mls/hr 08/14/19 14:00 08/17/19 13:02 Chloride IVPB 100 mls 0200,1400 ELIDA Administration Loperamide HCl 2 mg 08/14/19 06:25 08/15/19 07:45 Imodium PO 2 mg PRN PRN Administration Diarrhea/Loose Stools Ondansetron HCl 4 mg 08/14/19 06:25 08/17/19 01:41 Zofran Odt SL 4 mg Q6H PRN Administration Nausea/Vomiting Ondansetron HCl 4 mg 08/14/19 06:25 08/14/19 16:43 Zofran IVP 4 mg Q6H PRN Administration Nausea/Vomiting - Exam General Appearance: NAD, awake alert Heart: RRR, no murmur, no gallops, no rubs, normal peripheral pulses Respiratory: CTAB, no wheezes, no rales, no ronchi, normal chest expansion, no tachypnea, normal percussion Gastrointestinal: soft, non-tender, non-distended, normal bowel sounds, no palpable masses, no hepatomegaly, no splenomegaly, no bruit Extremities: 2+ LE edema Extremities - other findings: anasarca Musculoskeletal: no muscle wasting, generalized weakness Psychiatric: normal affect, normal behavior, A&O x 3 Hosp A/P (1) Diarrhea Code(s): R19.7 - DIARRHEA, UNSPECIFIED Status: Acute (2) Malnutrition Code(s): E46 - UNSPECIFIED PROTEIN-CALORIE MALNUTRITION Status: Acute (3) Hypokalemia Code(s): E87.6 - HYPOKALEMIA Status: Acute (4) Hypophosphatemia Code(s): E83.39 - OTHER DISORDERS OF PHOSPHORUS METABOLISM Status: Acute (5) Anasarca Code(s): R60.1 - GENERALIZED EDEMA Status: Acute (6) Cavitary lesion of lung Code(s): J98.4 - OTHER DISORDERS OF LUNG Status: Acute (7) Sepsis Code(s): A41.9 - SEPSIS, UNSPECIFIED ORGANISM Status: Acute (8) Lactic acid acidosis Code(s): E87.2 - ACIDOSIS Status: Acute (9) Macrocytic anemia Code(s): D53.9 - NUTRITIONAL ANEMIA, UNSPECIFIED Status: Acute (10) Steatohepatitis Code(s): K75.81 - NONALCOHOLIC STEATOHEPATITIS ([place]) Status: Acute (11) Pancreatitis Code(s): K85.90 - ACUTE PANCREATITIS WITHOUT NECROSIS OR INFECTION, UNSP Status: Acute - Plan Broad array of nutritional deficiencies and electrolyte deficiencies. Continue to replace via IV. Much improved. Chronic diarrhea. Cause is not clear. Had endoscopy [facility] Reviewed records. Candidal esophagitis, mild duodenitis, normal colon. Also indicate chronic pancreatitis. She was being treated with enzymes there. 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 Repeat CT here shows severe pancreatitis with necrosis of the pancreatic head. Has leukocytosis, cavitary lung lesions and fever. Concern for TB, encocarditis. Echo, AFB smears. Isolate. Continue the broad-spectrum IV abx. Fever has resolved. Eating better. Appears to have some soft tissue swelling or hematoma to the right posterior chest area. Does not look acute. Swelling may be worse with the generalized anasarca. The steatosis may be from starvation, but the pancreatitis and the fatty liver make EtOH a concern as well. Anasarca will take time to resolve with treatment of the exocrine pancreatic insufficiency and improved nutrition.
[2019-08-17] MEDS ORDERED: Vancomycin HCl 1.25 GM in Sodium Chloride 0.9% 250 ML 250 ML IVPB SCH (21:00)
--- NOTE | 2019-08-17 21:14 | CON ---
DATE OF CONSULTATION: 08/17/2019 REASON FOR CONSULTATION: Malnutrition, acute on chronic pancreatitis, cavitary lung lesions, and abnormalities in the peripheral blood smear. HISTORY OF PRESENT ILLNESS: A 53-year-old lady, who is a patient of Dr. Wisdom and has had a diagnosis of chronic pancreatitis for the past 3 years as well as prior splenic vein thrombosis, on Coumadin. She is also a chronic smoker and has had a progressive weight loss, which has been ascribed to malnutrition from malabsorption associated with chronic pancreatitis. She is on Creon and presumably compliant with the medication. The reason for the pancreatitis is not clear. She used to drink but only occasionally or once a week more or less. Did not have any knowledge of gallbladder disease or medications associated with pancreatitis. She was admitted most recently to [facility] in July 24. At that time, she presented with presumable cellulitis and sepsis, anasarca, and malnutrition. Discharge diagnoses included lactic acidosis, chronic pancreatitis, protein-calorie malnutrition, systolic heart failure, anemia. She also was diagnosed with Radha esophagitis via EGD, which was confirmed by histopathology. She had some peptic duodenitis associated with it. Chest x-rays performed #3 during this past admission at the [facility], initially were completely normal, and then the last x-ray upon discharge showed some early changes at the bases, right and left side. Of note , she had a number of abnormalities in the peripheral blood smear, which included basophilic stippling, Pappenheimer bodies, and Fuentes-Naranjito bodies, which are usually seen with splenectomized patients or patients with heavy metal poisoning or also patients with myelodysplastic syndrome. After discharge, she persisted not doing well and was brought to [facility] and admitted after having fallen to the floor. EMS brought the patient to the [facility] and she was readmitted to this hospital. Apparently, she had some unresponsiveness which was brief, some labored breathing. She was hypotensive with systolic in the 80s to 90s. There had been no documented fever and she had been coughing quite a bit, but has no sputum production. She continues to smoke daily and continues with persistent diarrhea despite the Creon. Initial findings here in the hospital showed of BP 182/59, pulse 88, respirations 21, temperature 97.9, and O2 saturation 98% . The pertinent findings included some lethargy and decreased breath sounds at lung bases. Heart exam was normal. Abdomen was soft, nontender or distended. There was some pitting edema in the lower extremities up to the thigh level. A few preserved bullae in the lower extremities. Initial lab results included white cell count 17.4, hemoglobin 7.5, MCV 99.7, platelets 381, and 77% neutrophils. INR is 2.7. The sodium was 139, creatinine 0.47. Liver profile was normal except for alkaline phosphatase of 515, albumin 1.6, TSH 4.8. Urinalysis was essentially normal. Toxicology with barbiturates detected, but no other abnormalities. Serology showed negative HIV serology. She had a chest CT scan, which demonstrated bilateral pleural effusions, compressive atelectasis, multiple cavitary lesions in both lungs. There is a 4.5 cm cavitary lesion or mass in the right lower lobe with air- fluid level. There was a 2nd cavitary mass in the right mid lung medially in the paravertebral location. In the right upper lobe, there are focal areas of ground-glass opacities consistent with areas of alveolar infiltrates and some ground-glass opacities in the left upper lobe. There is a cavitary lesion in the left mid lung field in the region of the lingula, measuring 3 cm. The mediastinum was not remarkable. The pulmonary arteries were well opacified with no evidence of pulmonary embolism. The patient had an abdomen and pelvis CT, which demonstrated the third spacing of fluid with inflammation around the pancreatic body, poor enhancement. There is moderate distention of the small bowel without a definite transition point. Diffuse hepatic steatosis and hypodensity in the pancreatic head, which corresponds to the previously identified pseudocyst in [facility] imaging studies. She also had a previous splenic vein thrombosis diagnosed at [facility], which was not apparent during this evaluation. Currently, Ms. Rolle is awake. She appears chronically ill, she is complaining of dyspnea. She is coughing intermittently. She has some mild to moderate headache. No visual symptoms, sore throat, odynophagia, or dysphagia. No dental pain. No back pain. No chest pain. No abdominal pain. She has a Zarate catheter inserted during this admission. She has pain in lower extremities associated with edema. Her cognitive function appears to be intact according to herself and . PAST MEDICAL HISTORY: Includes chronic pancreatitis of unknown etiology; malnutrition with progressive weight loss over the past 6 months; pancreatic pseudocyst; chronic diarrhea, probably due to malabsorption despite Creon; cardiomyopathy of unknown etiology; chronic anemia with the abnormalities noted on the peripheral smear as discussed above; chronic smoking; and splenic vein thrombosis, treated with warfarin. SURGICAL HISTORY: Colonoscopy; and hysterectomy, partial. MEDICATIONS: At home included; 1. Calcitriol. 2. Vitamin B12. 3. Enoxaparin. 4. Folic acid. 5. Gabapentin. 6. Levsin. 7. Creon one capsule three times daily with meals. 8. Magnesium oxide. 9. Metoprolol. 10. Mirtazapine. 11. Pantoprazole. 12. Potassium chloride. 13. Thiamine. 14. Warfarin. She was also given nystatin swish and swallow upon discharge from the recent admission to [facility]. She was also prescribed spironolactone upon discharge. SOCIAL HISTORY: The patient is a chronic smoker. She is , lives in [place]. She used to drink, but occasionally. No IV drug use or other drug use of significant nature. FAMILY HISTORY: Noncontributory. PHYSICAL EXAMINATION: VITAL SIGNS: The current vital signs; T-max 101.4 on admission, she seems to be defervescing since admission, and BP 172/97, pulse 79, respiratory rate 20, O2 saturation 98%. SKIN: With a few blisters in the lower extremities, probably associated with edema and hypoalbuminemia. Some blisters in the distal extremities as well. No lymphadenopathy. HEENT: Some alopecia. Ocular movements are conjugate. Sclerae are white. Pupils are equal. Nasal passages patent. Oral cavity with possible oral candidiasis. She has excellent dental enamel and no periodontitis to speak off, which is unusual. NECK: Supple with bilateral jugular vein distention, mostly on expiration, but not on inspiration. No thyromegaly. LUNGS: With scattered rhonchi, more intense on the right side. Few areas of wheezing noted as well. HEART: S1 and S2 with a soft aortic murmur at the aortic area and a little bit in the apex as well. Regular rate. No S3. ABDOMEN: Mild to moderately distended, but not tender to palpation. No evidence of ascites. No organomegaly or bladder distention. EXTREMITIES: She has anasarca with edema up to the thighs in the lower extremities. Pulses are 1+ in dorsalis pedis. She is able to move extremities on command. Plantar responses are indifferent. NEUROLOGIC: She is awake, knows her name, recognizes her significant other. She knows where she is. Speech appears to be normal. LABORATORY DATA: Here, the white cell count is now 19.9, hemoglobin 11, platelets 380 with 73% neutrophils and 18% bands. INR 2.3. Creatinine 0.41, glucose 123, calcium 6.3. Microbiology, we have a negative acid-fast smear in one sample of sputum thus far. Stool was negative for C diff, Shiga toxin, and Campylobacter. Two sets of blood culture, no growth at 48 hours. The echocardiogram with an EF of 55% to 60% and no significant structural valvular abnormality noted. ASSESSMENT: History of chronic pancreatitis of uncertain etiology, prior splenic vein thrombosis, treated with warfarin to this date. Cardiomyopathy. Malnutrition with chronic diarrhea despite Creon. Chronic smoking. Abnormalities on peripheral blood smear, which are consistent with either lack of splenic function which could be related to the recent splenic vein thrombosis or other abnormalities such as for example heavy metal poisoning. Myelodysplastic syndrome can also present with similar findings. Rapid developing areas of cavitary pneumonia, which were not present as recently as 10 to 11 days ago at [facility]. DISCUSSION: The patient has a multiplicity of issues, some of them chronic such as the pancreatitis and malnutrition, some of them are acute such as the areas of cavitary pneumonia. The pneumonia is unlikely to represent Mycobacterium tuberculosis infection in view of the acuteness of onset and as well as the lack of a positive smear in the first sample obtained. Cavitary pneumonias due to TB are notorious for having high concentrations of acid-fast bacilli in the samples. So, I believe it is more likely to represent a pyogenic bacterial infection, for example from aspiration with possible anaerobic component. Staphylococcus aureus is also considered as well as gram-negative rods including Klebsiella pneumoniae. So the task at hand will be to treat this acute complication and also to identify the reasons for the chronic pancreatitis and to rule out heavy metal poisoning, myelodysplastic syndrome, and hyposplenism. She also needs treatment for the Radha esophagitis and I believe this has already been started with fluconazole and seems to be at an adequate dosage. We will go ahead and switch her to meropenem from the current regimen, which will add anaerobic coverage, broaden spectrum of coverage for gram-negative rods, and also add vancomycin for the possibility of Staphylococcus aureus/MRSA component in her areas of pneumonitis. Submit heavy metal assays in urine and plasma. She is obviously immunosuppressed and will check CD4 and also an HIV PCR to be sure. Job ID: [id number] [facility]
[2019-08-17] MEDS ORDERED: MEROPENEM 1 GM/50 ML 1 GM in Premix Bag 1 BAG IVPB SCH (22:00)
[2019-08-18] VITALS: BP 170/99; TEMP 98.1
[2019-08-18] MEDS: HYDROcodone/Acetaminophen 5/325 mg Tablet PO PRN (00:48)
[2019-08-18] MEDS: Sodium Chloride 0.9% 1,000 ML IV SCH (03:23)
[2019-08-18] MEDS ORDERED: Lorazepam 2 MG/ML VIAL ONE (03:44)
[2019-08-18] MEDS ORDERED: Midazolam HCl 2 mg/2 ml Vial IVP SCH (03:45)
[2019-08-18] MEDS ORDERED: Amiodarone 150 MG/3 ML VIAL ONE (04:15)
[2019-08-18] MEDS ORDERED: EPINEPHrine 1 MG/ML AMP ONE (04:15)
[2019-08-18] MEDS ORDERED: Calcium Chloride 1 GM/10 ML Abboject SYRINGE ONE (04:15)
[2019-08-18] MEDS ORDERED: Dextrose 50% Abboject 50 ML SYRINGE ONE (04:15)
[2019-08-18] MEDS ORDERED: Sodium Bicarb 50 MEQ/50 ML VIAL ONE (04:15)
[2019-08-18] MEDS ORDERED: Lidocaine HCl/PF 100 MG/5 ML SYRINGE ONE (04:15)
[2019-08-18] MEDS ORDERED: EPINEPHrine 1 MG/10 ML Abboject SYRINGE ONE (04:15)
[2019-08-18] MEDS ORDERED: Succinylcholine Chloride 20 MG/ML 10 ml SYRINGE FS ONE (04:15)
--- NOTE | 2019-08-18 04:42 | PDOC.EVN ---
Event Note - Event Note Event Note: Code Vicente called as pt was found unresponsive and asystolic. CPR initiated immediately and ACLS protocol followed. Difficult airway requiring high dose Succinylcholine and Etomidate. Pt received a total of 11mg Epinephrine/3 NaHCO3 / Cagluconate and was intubated. CPR continued for approx 45min without return of pulse or spontaneous circulation. Pt's arrived and was informed of the situation and he notified the code team to stop CPR after all efforts for resuscitation were unsuccessful. Pt at 0412 with at bedside. Decedent affairs were notified and food service utility worker services came for support. Total critical care time: 40min
--- NOTE | 2019-08-18 04:53 | PDOC.EVN ---
Event Note - Event Note Event Note: Neel byers called at 0327. Upon arrival to room, chest compressions were underway. ER resident was present and agreed to run code. Shortly following, PGY3 Dr. Salinas arrived and proceeded w/ self to head of bed. After some difficulty due to patient's tightly clenched jaw, ET airway was established with good color change and breath sounds bilaterally to confirm tube placement. ACLS protocol followed for asystole w/ use of epinephrine x11, bicarb x3, and calcium gluconate. Periodic pulse checks were performed without palpation of pulse. of patient was called and upon arrival, Dr. Salinas proceeded to update on the situation. called the code at 0412 and pt pronounced at this time. Pastoral care called.
--- NOTE | 2019-08-19 08:33 | PRG ---
DATE OF SERVICE: 08/16/2019 SUBJECTIVE: Ms. Rolle and her nurse both report she has had less diarrhea today. She is taking the Creon three t.i.d. with meals. She remains on Levaquin and cefepime. Reviewing her records, she had Radha esophagitis diagnosed in hospitalization between 07/24/2019 and 08/04/2019 at [facility]. She had EGD and colonoscopy. Colonoscopy random biopsies were negative. The EGD showed some mild erosions in the duodenum and stomach. Biopsies were negative for this and Radha. She says that her diarrhea has gotten worse for the past several months. Her last CAT scan of the abdomen was quite a while back. She states she has a DVT in her splenic vein. Apparently, there was no CT scan of her chest. When she was at [facility] recently, chest x-ray did not reveal the findings that were found here with the pneumonic abscesses. OBJECTIVE: VITAL SIGNS: Temperature 98.7, pulse 61, and blood pressure 149/91. LUNGS: She is coughing quite a bit. She gets breathing treatments pretty frequently. ABDOMEN: Slightly protuberant, but nontender. There is some scar in her abdomen. EXTREMITIES: No clubbing, cyanosis, or edema. LABORATORY DATA: No CBC today. Sodium 136, potassium 3.2, BUN and creatinine are 4 and 0.4, calcium 6.2, magnesium 1.4, and phosphorus 3.1. ASSESSMENT: 1. Diarrhea, improving. 2. Multiple electrolyte abnormalities. These should be replaced IV and not orally, especially the magnesium as that will just lead to more diarrhea. 3. We would continue Creon three pills t.i.d. with food. 4. With regard to her antibiotics, I would add back Diflucan as she had Radha esophagitis not long ago and treatment is usually 2 weeks with this. 5. We would check HIV status. 6. We would get a CAT scan of abdomen as she has new abscesses in her lungs that were not seen at [facility], and she has history of chronic pancreatitis, worsening diarrhea, possibly she has worsening pancreatic function related to neoplasia that could account for weight loss as well. Job ID: [id number]
[2019-08-20 21:07] LABS: Arsenic - Blood 14 ug/L (2-23); Lead - Blood 4 ug/dL (0-4); Mercury - Blood None Detected ug/L (0.0-14.9)
[2019-08-21 19:08] LABS: QuantiFERON-TB Gold Plus Negative (Negative)
--- NOTE | 2019-08-25 18:17 | DIS ---
DATE OF ADMISSION: 08/14/2019 DATE OF DISCHARGE: 08/18/2019 DISCHARGE DIAGNOSES: 1. Necrotizing cavitary pneumonia. 2. Protein calorie malnutrition, severe. 3. Pancreatic necrosis. 4. Anasarca. 5. Sepsis. 6. Lactic acidosis. 7. Steatohepatitis. 8. History of pancreatitis. 9. Macrocytic anemia. 10. Hypophosphatemia. 11. Hypokalemia. 12. Malabsorptive diarrhea. 13. Hypocalcemia. 14. Coagulopathy. 15. Severe sepsis secondary to pneumonia. 16. Septic shock. 17. History of splenic vein thrombosis, on anticoagulation. 18. History of chronic obstructive pulmonary disease. 19. Atelectasis. 20. Pleural effusions. 21. Pancreatitis. 22. Fall. 23. Ascites. 24. Minor right posterior chest wall contusion. CONSULTANTS: Pulmonary Critical Care, Gastroenterology, Cardiology, Infectious Disease. IMAGING STUDIES: Echocardiogram on 08/15/2019, indicating ejection fraction of 55% to 60%, sinus tachycardia, mild MR, mild TR, normal pulmonary artery pressures and normal left ventricular size. Brain CT on 08/13, getting no acute abnormalities. Chest x-ray 08/13, at emergency department shows cavitary lesions of the right lung base. Confluent opacity in the left base consistent with mass or focal consolidation. Chest CT on 08/15, reveals moderate size bilateral pleural effusions with bilateral compressive atelectasis. Multiple cavitary lesions in both lungs as described above indicating a 4.5 cm cavitary mass in the right lower lobe with air-fluid level within the lesion. Second cavitary mass in the right mid lung medially in the paravertebral location approximately 2.3 cm in dimension with a cavitary component. Cavitary lesion in the left mid lung measuring 3 cm with 1.2 cm central cavitation. Abdominal and pelvic CT on 08/17, shows severe pancreatitis with necrosis of the head and body, hypodensity of the pancreatic head, incompletely evaluated and bilateral pleural effusions, abnormal enhancement of the peritoneum adjacent to the liver and spleen indicating peritonitis likely inflammation from the pancreatitis. Severe third spacing fluids. Diffuse hepatic steatosis. Unchanged cavitary lesion in the right lower lobe, high-grade narrowing of the splenic vein at the portal confluence. Dilated small bowel without a transition point potentially reflective of an ileus and moderate ascites. HISTORY OF PRESENT ILLNESS: This patient is a 53-year-old female, who presented to the hospital following a fall. The patient reported that she had recently been evaluated at [facility] with concerns for ongoing diarrhea with numerous loose stools each day. She had undergone endoscopy, however, the results of that were not yet known and the records are not immediately available. The patient apparently was hypotensive and had some slight confusion and apparently slid out of her couch onto the floor. She was given some fluid resuscitation in the emergency department and her blood pressure responded. Chest x-ray indicated evidence of pneumonia and the patient was started on cefepime and vancomycin. She also had numerous electrolyte abnormalities, which were aggressively addressed through IV repletion as well. HOSPITAL COURSE: The patient was admitted to the hospital and continued on broad-spectrum IV antibiotics to address what appeared to be pneumonia with some evidence of cavitations. She was seen in consultation by Pulmonary Critical Care and GI. A followup CT scan of the chest revealed that she did have several cavitary lesions as noted above. She was immediately placed on isolation and sputums were sent for AFB smears and culture. The initial smears were negative. QuantiFERON gold was also sent off. GI started the patient on some supplemental pancreatic enzymes and awaited the results of the biopsies from [facility]. The patient had an echocardiogram performed, which showed no evidence of vegetations and appeared to have normal cardiac function. She continued to have some diarrhea, although it was starting to improve somewhat with the enzyme supplementation. Once results were obtained from [facility], it appeared that there was a CT scan performed there showing significant pancreatitis with pancreatic necrosis. A repeat CT scan of the abdomen and pelvis was obtained with the results noted above. She was continued on the pancreatic enzymes and was starting to eat better and the diarrhea was starting to improve significantly. She was seen in consultation by Dr. Manzanares who made some adjustments in her medications and her antibiotics further to address potential pathogens. Subsequently, however, the patient was found unresponsive and underwent ACLS protocol with no success in resuscitative efforts and the patient was subsequently pronounced at 4:12 on 07/18/2019. The patient's family was notified and were present. No autopsy was obtained. Job ID: [id number]
== END 2019-08-18 04:12 | disposition expired | DRG 871 ==
LOC: ERS 23:25 → CCU 08-14 07:54 → T4-B 08-15 09:01
PROVIDERS: ADMIT Family Medicine; ATTEND Family Medicine
PROC: 5A12012 Performance of Cardiac Output, Single, Manual (ICD-10-PCS; principal; 2019-08-14)
DX: A41.9 Sepsis, unspecified organism (principal); R65.21 Severe sepsis with septic shock; K85.90 Acute pancreatitis without necrosis or infection, unspecified; E43 Unspecified severe protein-calorie malnutrition; J85.0 Gangrene and necrosis of lung; E87.2 Acidosis; B37.81 Candidal esophagitis; K86.1 Other chronic pancreatitis; R18.8 Other ascites; I50.22 Chronic systolic (congestive) heart failure; I82.891 Chronic embolism and thrombosis of other specified veins; J44.0 Chronic obstructive pulmonary disease with (acute) lower respiratory infection; E83.51 Hypocalcemia; D64.9 Anemia, unspecified; J98.4 Other disorders of lung; W18.39XA Other fall on same level, initial encounter; K86.89 Other specified diseases of pancreas; K75.81 Nonalcoholic steatohepatitis (NASH); E83.39 Other disorders of phosphorus metabolism; R79.1 Abnormal coagulation profile; F17.210 Nicotine dependence, cigarettes, uncomplicated; I11.0 Hypertensive heart disease with heart failure; S20.211A Contusion of right front wall of thorax, initial encounter; K29.80 Duodenitis without bleeding; E87.6 Hypokalemia; Z90.710 Acquired absence of both cervix and uterus; Z88.1 Allergy status to other antibiotic agents; Y93.89 Activity, other specified; Z79.01 Long term (current) use of anticoagulants
CPT/HCPCS: 36415; 36416; 36430; 51702; 70450; 71045; 71260; 74177; 80048; 80053; 80306; 81001; 82175; 82274; 82533; 82570; 83605; 83630; 83655; 83735; 83825; 83880; 84100; 84443; 84484; 85007; 85025; 85027; 85610; 86480; 86850; 86900; 86901; 87040; 87045; 87046; 87086; 87116; 87206; 87389; 87427; 87449; 92950; 93005; 93306; 94640; 96361; 96365; 96366; 96367; 99292; J0171; J0282; J0692; J1956; J2060; J2185; J2405; J3370; J3475; J3480; J3490; J7050; J7620; P9016; Q0162